=== PATIENT | male | born 1960 | race Caucasian/White ===

== ENCOUNTER 2022-04-13 12:24 | Outpatient (CLI) | payer OTHER, SELFPAY ==
--- NOTE | ~2022-04-13 | XR_ITS ---
Right Shoulder Technique: AP and axillary views were obtained. Clinical History: Pain Findings: No fracture or dislocation is seen. Osseous alignment is anatomic. There is minimal degener ative changes AC joint. Glenohumeral joint is intact. Soft tissues are unremarkable. Impression: Minimal AC joint degenerative change. Reviewed, dictated and finalized at [facility]. OCOPYING MACHINE OPERATOR Impression: Minimal AC joint degenerative change.
== END 2022-04-13 12:25 ==
PROVIDERS: PCP Internal Medicine; Visit Provider Clinical Nurse Specialist
DX: M25.511 Pain in right shoulder (principal)
CPT/HCPCS: 73030

== ENCOUNTER 2022-04-16 12:09 | Outpatient (CLI) | payer OTHER, SELFPAY ==
[2022-04-16 13:55] LABS: Basophils Percent Auto 0.3 % (0.2-1.2); Eosinophils Percent Auto 0.1 % (0-4.4); Immature Granulocyte Absolute 0.07 K/mm3 (0.00-0.031); Immature Granulocyte Percent A 0.5 % (0-0.5); Lymphocytes Absolute Auto 3.54 K/mm3 (0.9-3.2); Lymphocytes Percent Auto 26.4 % (18.3-44.2); Mean Corpuscular HGB Conc 32.6 g/dl (32-36); Mean Corpuscular Hemoglobin 30.9 pg (26-34); Mean Corpuscular Volume 94.7 fl (80-100); Mean Platelet Volume 9.2 fl (7.4-10.4); Monocytes Absolute Auto 0.9 K/mm3 (0.1-0.6); Monocytes Percent Auto 6.5 % (2.6-8.5); Neutrophils Absolute Auto 8.9 K/mm3 (1.3-6.7); Neutrophils Percent Auto 66.2 % (45.5-73.1); Platelet Count Result 361 k/mm3 (150-375); Red Blood Count 4.86 M/mm3 (4.6-6.20); Red Cell Distribution Width 13.7 % (11.5-14.5); White Blood Count 13.4 K/mm3 (4.5-10.0)
[2022-04-16 14:06] LABS: Alanine Aminotransferase 21 U/L (6-50); Alkaline Phosphatase 88 U/L (38-126); Anion Gap 5 mmol/L (8-16); Aspartate Amino Transferase 20 U/L (17-59); Bilirubin,Total 0.5 mg/dL (0.2-1.3); Blood Urea Nitrogen 15 mg/dL (9-20); Calcium 8.7 mg/dL (8.4-10.2); Carbon Dioxide 33 mmol/L (22-30); Chloride 104 mmol/L (98-107); Cholesterol 181 mg/dL (0-200); Estimated Glomerular Filt Rate > 60; Glucose 82 mg/dL (65-110); HDL Direct 48 mg/dL; Potassium 3.9 mmol/L (3.4-5.0); Sodium 142 mmol/L (137-145); Triglycerides 67 mg/dL (<150)
[2022-04-16 14:17] LABS: LDL Cholesterol Direct 100 mg/dL
[2022-04-16 14:37] LABS: Prostate Specific Antigen 1.5 ng/mL (< OR = 4.0); Thyroid Stimulating Hormone 0.949 uIU/mL (0.465-4.680)
[2022-04-16 15:47] LABS: Vitamin D 25 Hydroxy 26.1 ng/mL
== END 2022-04-16 12:10 | disposition home or self-care (01) ==
PROVIDERS: PCP Internal Medicine; Visit Provider Clinical Nurse Specialist
DX: E55.9 Vitamin D deficiency, unspecified (principal); Z13.228 Encounter for screening for other metabolic disorders; Z12.5 Encounter for screening for malignant neoplasm of prostate; Z13.220 Encounter for screening for lipoid disorders; R53.83 Other fatigue
CPT/HCPCS: 36415; 80053; 80061; 82306; 84153; 84443; 85025; G0103

== ENCOUNTER 2022-05-30 14:23 | Outpatient (CLI) | payer OTHER, SELFPAY ==
--- NOTE | ~2022-05-30 | CT_ITS ---
CT Scan of the Chest without Contrast: Clinical Indication: Current smoker, lung cancer screening Technique: Contiguous sections were acquired throughout the chest without intravenous contrast. Dose reduction technique was used on this scan by utilizing automated exposure control and iterative recon struction technique. The dose-length product (DLP) was 287.86 mGy-cm. Findings: There is no evidence of any significant mediastinal, hilar or axillary lymphadenopathy. The mediastin al soft tissues appear normal. There is no evidence of pleural or pericardial effusion. Tiny left lower lobe calcified granuloma noted. No other pulmonary nodules identified.. Images through the upper abdomen reveal probable small left hepatic lobe cyst. Impression: Lung-RADS 2: Benign appearance. 12 month follow-up screening CT advised. Reviewed, dictated and finalized at location . Impression: Lung-RADS 2: Benign appearance. 12 month follow-up screening CT advised.
== END 2022-05-30 14:24 ==
LOC: MICIMG 14:24
PROVIDERS: PCP Internal Medicine; Visit Provider Clinical Nurse Specialist
DX: Z12.2 Encounter for screening for malignant neoplasm of respiratory organs (principal); Z87.891 Personal history of nicotine dependence
CPT/HCPCS: 71271

== ENCOUNTER 2023-09-02 14:34 | Emergency (ER) | payer OTHER, SELFPAY ==
[2023-09-02 14:36] VITALS: O2SAT 95
[2023-09-02 14:47] VITALS: BP 151/88; PULSE 101; RESP 20; TEMP 37; O2SAT 93
--- NOTE | 2023-09-02 15:48 | PC.NURSE ---
Pt seen by port purser ambulating out to parking lot. Did not notify the port purser he declined to be seen. NAD noted on exit.
== END 2023-09-02 16:20 | disposition left against medical advice (07) ==
LOC: ANHED 15:53
PROVIDERS: PCP Internal Medicine
DX: R09.02 Hypoxemia (principal); Z53.21 Procedure and treatment not carried out due to patient leaving prior to being seen by health care provider
CPT/HCPCS: 99199

== ENCOUNTER 2023-09-06 09:12 | Outpatient (CLI) | payer OTHER, MEDICARE, SELFPAY ==
--- NOTE | ~2023-09-06 | XR_ITS ---
EXAMINATION: XR chest 2V DATE: 09/06/2023 09:37 INDICATION: Shortness of breath. TECHNIQUE: PA and lateral views of the chest were obtained. COMPARISON: Chest CT dated 05/30/2022 FINDINGS: Mild lingular atelectasis/scarring along side a small left pericardial fat pad. No other airspace op[place] cities, pulmonary edema, pleural effusion or pneumothorax. The cardiomediastinal silhouette is normal . Mild thoracic spondylosis. IMPRESSION: 1. Mild lingular atelectasis along side a small left pericardial fat pad. No acute cardiopulmonary di sease. Reviewed, dictated and finalized at location [facility]. IMPRESSION: 1. Mild lingular atelectasis along side a small left pericardial fat pad. No ac [place] cardiopulmonary disease.
== END 2023-09-06 09:13 | disposition home or self-care (01) ==
PROVIDERS: PCP Internal Medicine; Visit Provider Clinical Nurse Specialist
DX: J44.9 Chronic obstructive pulmonary disease, unspecified (principal); R09.02 Hypoxemia; R91.8 Other nonspecific abnormal finding of lung field
CPT/HCPCS: 71046